=== PATIENT | female | born 1960 | race Caucasian/White ===

== ENCOUNTER → 2018-02-09 | Outpatient (CLI) | payer OTHER, MEDICARE ==
[~2018-02-09] MED LIST: ALLO100 PO; CALGLU500; CHOL10002 PO; COLE625 PO; CONEST.625 PO; CYCL10 PO; DULO30 PO; ENJUVIA; FAMO20 PO; FERR325 PO; FLORINEF; FOLI400 PO; FURO20 PO; GABA300 PO; GABA600 PO; HYDACE10B PO; HYDCOR10 PO; Hydrochlorothia25 MG PO; IBUP600 PO; Keflex500 MG PO; LISI20 PO; LISI5 PO; LISINOPRIL PO; MAGOXI400 PO; METF500 PO; METF500C PO; MULVITA; OLME20; OMEPRAZOLE MAGN20 MG PO; POTCHL10ER PO; POTCHL20ER PO; PRAV20 PO; PRAVASTATIN PO; RXCYCL10 PO; TOCO400; TRAM50 PO; ZOLOFT PO; ZOLP10 PO; [UNRECOGNIZED DRUG - REMARK]; [UNRECOGNIZED DRUG - REMARK]; [UNRECOGNIZED DRUG - REMARK]
== END ==
LOC: PLD 07:16 → LAB SHORT 07:16
DX: D48.5 Neoplasm of uncertain behavior of skin (principal)
CPT/HCPCS: 88312

== ENCOUNTER 2018-12-14 07:48 | Day surgery (SDC) | payer BC, MEDICARE ==
[~2018-12-14] VITALS: Ht 167 cm; Wt 103.2 kg
[2018-12-14] MEDS ORDERED: METO25ER PO (08:18)
--- NOTE | 2018-12-14 09:02 | NUR ---
12/14/18 0902 Efrain Womack PATIENT DETERMINED TO BE ASA APPROPRIATE FOR PROPOFOL SEDATION PRIOR TO START OF PROCEDURE BY . 3-LEAD EKG REVIEWED WITH PHYSICIAN PRIOR TO START OF PROCEDURE.PATIENT CONFIRMS NPO STATUS AND AGREES WITH SCHEDULED PROCEDURE.History, Chart, Medications and Allergies reviewed before start of procedure.MONITOR INTACT WITH CONTINUOUS PULSE OXIMETRY AND INTERMITTENT BP.O2 VIA N/C INTACT THROUGHOUT SEDATION/PROCEDURE.HURRICAINE SPRAY TO OROPHARYX.Bite Block Placed
--- NOTE | 2018-12-14 09:58 | NUR ---
RECIEVED PATIENT AND REPORT PATIENT AWAKE ABLE TO FOLLOW COMMANDS
--- NOTE | 2018-12-14 10:25 | NUR ---
Discharge instructions reviewed with patient. Patient verbalizes understanding. Copy given to patient to take home. Discharged via wheelchair to private car for ride home.
== END 2018-12-14 10:20 | disposition home or self-care (01) ==
LOC: ORSCMMR 07:48 → ORD 09:00 → ORSCMMR 09:00
PROVIDERS: Internal Medicine Gastroenterology
PROC: 0DB68ZX Excision of Stomach, Via Natural or Artificial Opening Endoscopic, Diagnostic (ICD-10-PCS; principal; 2018-12-14 09:00)
PROC: 0DBN8ZX Excision of Sigmoid Colon, Via Natural or Artificial Opening Endoscopic, Diagnostic (ICD-10-PCS; principal; 2018-12-14 09:00)
PROC: 0DBK8ZX Excision of Ascending Colon, Via Natural or Artificial Opening Endoscopic, Diagnostic (ICD-10-PCS; principal; 2018-12-14 09:00)
DX: K21.0 Gastro-esophageal reflux disease with esophagitis (principal); Z12.11 Encounter for screening for malignant neoplasm of colon; Z86.010 Personal history of colon polyps; D12.2 Benign neoplasm of ascending colon; K63.5 Polyp of colon; K76.6 Portal hypertension; K31.89 Other diseases of stomach and duodenum; E11.9 Type 2 diabetes mellitus without complications; Z79.899 Other long term (current) drug therapy
CPT/HCPCS: 82947; 88305; 88342; J2704; J7120

== ENCOUNTER → 2020-06-05 | Outpatient (CLI) | payer MEDICARE ==
[~2020-06-05] MED LIST changes: +METO25ER PO
[2020-06-05 15:06] LABS: BASOPHILS ABSOLUTE AUTO 0.06 K/mm3 (0.00-0.23); BASOPHILS PERCENT AUTO 1 % (0-2); EOSINOPHILS ABSOLUTE AUTO 0.14 K/mm3 (0.00-0.68); EOSINOPHILS PERCENT AUTO 2 % (0-6); Hematocrit 35.5 % (33.0-51.0); Hemoglobin 11.8 g/dL (11.5-16.0); IMMATURE GRAN ABSOLUTE AUTO 0.02 K/mm3 (0.00-0.10); IMMATURE GRAN PERCENT AUTO 0 % (0-1); LYMPHOCYTES ABSOLUTE AUTO 1.66 K/mm3 (0.84-5.20); LYMPHOCYTES PERCENT AUTO 19 % (21-46); MONOCYTES ABSOLUTE AUTO 0.88 K/mm3 (0.16-1.47); MONOCYTES PERCENT AUTO 10 % (4-13); Mean Corpuscular HGB 36.2 pg (26.0-34.0); Mean Corpuscular HGB Conc 33.2 g/dL (31.5-36.5); Mean Corpuscular Volume 109 fL (80-100); Mean Platelet Volume 9.2 fL (9.1-12.4); NEUTROPHILS ABSOLUTE AUTO 5.79 K/mm3 (1.96-9.15); NEUTROPHILS PERCENT AUTO 68 % (41-73); Platelet Count 322 K/mm3 (150-400); RDW Coefficient Variation 12.7 % (11.7-14.2); RDW Standard Deviation 51.8 fL (35.1-46.3); Red Blood Cell Count 3.26 M/mm3 (3.80-5.20); White Blood Cell Count 8.55 K/mm3 (4.00-11.30)
[2020-06-05 15:24] LABS: Alanine Aminotransfer (ALT/SGP 22 U/L (12-78); Albumin, Blood 2.8 g/dL (3.4-5.0); Albumin/Globulin Ratio 0.7 (0.8-1.8); Alk Phos 457 U/L (50-136); Anion Gap 11 mmol/L (6-16); Aspartate Aminotrans (AST/SGOT 117 U/L (12-37); Bilirubin, Direct 2.7 mg/dL (0.0-0.3); Bilirubin, Indirect 0.6 mg/dL (0.1-0.7); Bilirubin, Total 3.3 mg/dL (0.1-1.0); Blood Urea Nitrogen 4 mg/dL (8-24); Bun/Creatinine Ratio 4.9 (12.0-20.0); CHOL/HDL RATIO 8.9; CO2, Blood 26 mmol/L (21-32); Calcium, Blood 8.2 mg/dL (8.5-10.1); Chloride, Blood 96 mmol/L (98-108); Cholesterol 232 mg/dL (50-200); Creatinine, Blood 0.81 mg/dL (0.40-1.00); Globulin, Blood 3.9 g/dL (2.2-4.0); Glomerular Filtration Rate >60 (60-); Glucose, Blood 119 mg/dL (70-99); HDL Cholesterol 26 mg/dL (>39); LDL/HDL RATIO 5.7; Low Density Lipoprotein Chol 148 mg/dL (0-110); Phosphorus, Blood 2.7 mg/dL (2.5-4.9); Potassium, Blood 3.1 mmol/L (3.5-5.5); Sodium, Blood 133 mmol/L (136-145); Total Protein, Blood 6.7 g/dL (6.4-8.2); Triglycerides 290 mg/dL (30-160); Very Low Density Lipoprot Chol 58 mg/dL (6-32)
== END | disposition home or self-care (01) ==
LOC: LAB SHORT 13:44 → LAB FUT 08-09 10:45
PROVIDERS: Internal Medicine Nephrology
DX: N18.2 Chronic kidney disease, stage 2 (mild) (principal); D63.1 Anemia in chronic kidney disease; N25.81 Secondary hyperparathyroidism of renal origin; E55.9 Vitamin D deficiency, unspecified; E78.00 Pure hypercholesterolemia, unspecified; R76.9 Abnormal immunological finding in serum, unspecified; R94.5 Abnormal results of liver function studies; R80.9 Proteinuria, unspecified; R94.6 Abnormal results of thyroid function studies
CPT/HCPCS: 36415; 80053; 80061; 82248; 84100; 84443; 85025

== ENCOUNTER 2020-06-17 21:21 | Inpatient (IN) | payer MEDICARE, OTHER ==
[~2020-06-17] VITALS: Ht 165.1 cm; Wt 104.5 kg
[~2020-06-17 21:21] MED LIST changes: -ALLO100 PO; -FOLI400 PO; -METF500C PO; -METO25ER PO; -OMEPRAZOLE MAGN20 MG PO; -PRAV20 PO; -TRAM50 PO
[2020-06-17 21:40] LABS: Calcium, Ionized (POC) 0.79 mmol/L (1.10-1.46); Chloride (POC) 77 mmol/L (98-108); Creatinine (POC) 1.3 mg/dL (0.6-1.0); Glucose (ISTAT POC) 112 mg/dL (70-99); Hemoglobin (POC) 12.2 g/dL (12.0-16.0); Potassium (POC) 3.2 mmol/L (3.5-5.5); Sodium (POC) 126 mmol/L (135-148); Total CO2 (POC) 32 mmol/L (21-32)
[2020-06-17 21:49] LABS: BASOPHILS ABSOLUTE AUTO 0.04 K/mm3 (0.00-0.23); BASOPHILS PERCENT AUTO 0 % (0-2); EOSINOPHILS ABSOLUTE AUTO 0.08 K/mm3 (0.00-0.68); EOSINOPHILS PERCENT AUTO 1 % (0-6); IMMATURE GRAN ABSOLUTE AUTO 0.03 K/mm3 (0.00-0.10); IMMATURE GRAN PERCENT AUTO 0 % (0-1); LYMPHOCYTES ABSOLUTE AUTO 1.82 K/mm3 (0.84-5.20); LYMPHOCYTES PERCENT AUTO 20 % (21-46); MONOCYTES PERCENT AUTO 14 % (4-13); Mean Corpuscular HGB 35.5 pg (26.0-34.0); Mean Corpuscular HGB Conc 34.4 g/dL (31.5-36.5); Mean Corpuscular Volume 103 fL (80-100); NEUTROPHILS ABSOLUTE AUTO 6.03 K/mm3 (1.96-9.15); NEUTROPHILS PERCENT AUTO 65 % (41-73); Platelet Count 348 K/mm3 (150-400); RDW Coefficient Variation 12.3 % (11.7-14.2); RDW Standard Deviation 46.4 fL (35.1-46.3)
[2020-06-17 22:04] LABS: Alanine Aminotransfer (ALT/SGP 21 U/L (12-78); Albumin, Blood 2.9 g/dL (3.4-5.0); Albumin/Globulin Ratio 0.7 (0.8-1.8); Alk Phos 383 U/L (50-136); Anion Gap 18 mmol/L (6-16); Aspartate Aminotrans (AST/SGOT 89 U/L (12-37); Bilirubin, Total 5.4 mg/dL (0.1-1.0); Blood Urea Nitrogen 7 mg/dL (8-24); Bun/Creatinine Ratio 7.3 (12.0-20.0); CO2, Blood 31 mmol/L (21-32); Calcium, Blood 7.5 mg/dL (8.5-10.1); Chloride, Blood 79 mmol/L (98-108); Creatinine, Blood 0.96 mg/dL (0.40-1.00); Globulin, Blood 4.1 g/dL (2.2-4.0); Glomerular Filtration Rate >60 (60-); Glucose, Blood 104 mg/dL (70-99); Potassium, Blood 3.1 mmol/L (3.5-5.5); Sodium, Blood 128 mmol/L (136-145)
[2020-06-17] MEDS ORDERED: FUROSEMIDE40 MG PO (22:07)
[2020-06-17] MEDS ORDERED: KLOR-CON 1010 ME1 PO (22:08)
[2020-06-17] MEDS ORDERED: SPIRONOLACTONE25 MG PO (22:08)
[2020-06-17] MEDS ORDERED: TEMAZEPAM PO (22:09)
[2020-06-17] MEDS ORDERED: TRAM50 PO (22:09)
[2020-06-17] MEDS ORDERED: ZOLP10 PO (22:10)
[2020-06-17] MEDS ORDERED: FOLIC ACID0.4 MG PO (22:23)
[2020-06-17] MEDS ORDERED: MAGOXI400 PO (22:24)
[2020-06-17] MEDS ORDERED: ALLO100 PO (22:24)
[2020-06-17] MEDS ORDERED: GABA300 PO (22:24)
[2020-06-17] MEDS ORDERED: METO25 PO (22:25)
[2020-06-17] MEDS ORDERED: METF500 PO (22:25)
[2020-06-17] MEDS ORDERED: PRAVASTATIN SOD40 MG PO (22:26)
[2020-06-17] MEDS ORDERED: Naltrexone HCl50 MG PO (22:27)
[2020-06-17] MEDS ORDERED: OMEPRAZOLE MAGN20 MG PO (22:28)
[2020-06-18 01:46] LABS: Alanine Aminotransfer (ALT/SGP 19 U/L (12-78); Albumin, Blood 2.6 g/dL (3.4-5.0); Albumin/Globulin Ratio 0.8 (0.8-1.8); Alk Phos 329 U/L (50-136); Anion Gap 14 mmol/L (6-16); Aspartate Aminotrans (AST/SGOT 79 U/L (12-37); Blood Urea Nitrogen 7 mg/dL (8-24); Bun/Creatinine Ratio 7.6 (12.0-20.0); CO2, Blood 33 mmol/L (21-32); Calcium, Blood 7.4 mg/dL (8.5-10.1); Chloride, Blood 82 mmol/L (98-108); Creatinine, Blood 0.92 mg/dL (0.40-1.00); Globulin, Blood 3.4 g/dL (2.2-4.0); Glomerular Filtration Rate >60 (60-); Glucose, Blood 109 mg/dL (70-99); Potassium, Blood 2.2 mmol/L (3.5-5.5); Sodium, Blood 129 mmol/L (136-145)
--- NOTE | 2020-06-18 02:15 | NUR ---
REPORT RECIEVED FROM ZHENG MCKEON RN AND AWAITING PT T/F TO ROOM 308.
[2020-06-18 02:27] LABS: Source, Urine Clean Catch
[2020-06-18 02:33] LABS: Bilirubin, Urine Neg (Neg); Blood, Urine Neg (Neg); Glucose Qualitative, Urine Neg (Neg); Ketones, Urine 1+ (Neg); Leukocyte Esterase, Urine 3+ (Neg); Nitrite, Urine Neg (Neg); Protein, Urine Neg (Neg); Specific Gravity, Urine 1.005 (1.003-1.022); Urobilinogen, Urine 1+ (Normal); pH, Urine 6.5 (5.0-8.0)
[2020-06-18 02:41] LABS: Appearance, Urine Clear (Clear); Color, Urine Amber (P-Yellow)
[2020-06-18 02:43] LABS: Red Blood Cells, Urine 0-2 /hpf (0-2); Squamous Epithelial Cells Not Seen /hpf (Few)
[2020-06-18 02:44] LABS: Bacteria Few /hpf; Transitional Epithelial Cells Few /hpf (0-Rare)
--- NOTE | 2020-06-18 05:29 | NUR ---
T/F AND SUMMARY: PT T/F TO ROOM 308 AT 0237 VIA RNEY W/FAMILY AT BEDSIDE. SHE'D REPORTED INABILITY TO WALK D/T LEG CRAMPING, FOOT PAIN AND CARPEL/PEDAL SPASMS PRIOR TO ADMIT. STRENGTH IMPROVING AND PAIN TOLERABLE UPON ARRIVAL TO UNIT SO PT WAS 1PA W/FWW FROM [place] TO TOILET TO VOID THEN BED. SPEECH "IS SLOW" COMPARED TO BASELINE BUT PT IS A/OX4 AND SPECIFIES NEEDS. PT ORIENTED TO ROOM AND CALL SYSTEM. SHE ADMITS TO ETOH ABUSE (2-3 VODKA DRINKS DAILY), POOR EATING HABITS AND NOT TAKING SCHEDULED MEDS RX'D FOR 1-2 MONTHS. CIWA MONITORING IN PLACE: 0-2. SHE HAS BEEN COMPLIANT W/NEW MEDS: SPIRONOLACTONE, LASIX AND KCL FOR RECENT ASCITES AND BLE EDEMA. LEGS ARE RED, SWOLLEN AND WEEP AT TIMES. 6O MEQ IV KRIDER COMMENCED IN ER AND CONT'S INFUSING FOR CRITICAL K 2.2. LIQUID KCL WAS SENT W/PT FROM ER AND SHE VOMITED IMMEDIATELY AFTER RECIEVING IT. ZOFRAN PROVIDED FOR GOOD RELIEF OF NAUSEA AND ALERTED OF MISSED DOSE. 40MEQ PO K-DUR RX'D AND SHE TOLERATED IT W/WATER. K LEVEL TO BE REDRAWN FOLLOWING K-RIDER INFUSION THIS AM, WILL ENSURE DAY STAFF ARE AWARE. LACTIC ACID NO LONGER CRITICAL. PT STILL HYPOCALEMIC (NOW 7.4, WAS 7.5) AFTER 2GM CALCIUM GLUC RECIEVED IN ER, MD AWARE W/NO NEW ORDERS. NA WAS 129 DESPITE 1L NS BOLUS. PT S.TACH ON TELEMETRY, HR 90'S-100'S BPM W/O S/S DISTRESS. VSS/AFEBRILE, NO ACUTE CHANGES. WCTM AND REPORT TO DAY RN.
--- NOTE | 2020-06-18 17:51 | NUR ---
SHIFT SUMMARY PT ALERT BUT CONFUSED AT TIMES, NOT ORIENTED ABOUT THE DAY AND DATE. CIWA PER PROTOCOL, WHICH WNL. PT MEDICATED THE SCHEDULED TRAMADOL. PT STATED SHE HAS SOME FACE TINGLING FOR A MOMENT, BUT THEN IT WENT AWAY. PT RECEIVED POTASSIUM IV 3 BAGS TODAY; CALLED DR CASTLE FOR A LAB REPEAT; ORDERED SETS OF LAB FOR TOMORROW. DAUGHTER LESLEY RECEIVED AN UPDATE- RECEIVED A CONSENT FROM THE PT. BED IS IN THE LOWEST POSITION AND CALL LIGHT WITHIN REACH
[2020-06-19 05:15] LABS: BASOPHILS ABSOLUTE AUTO 0.04 K/mm3 (0.00-0.23); BASOPHILS PERCENT AUTO 1 % (0-2); EOSINOPHILS ABSOLUTE AUTO 0.17 K/mm3 (0.00-0.68); EOSINOPHILS PERCENT AUTO 3 % (0-6); Hematocrit 28.8 % (33.0-51.0); Hemoglobin 9.4 g/dL (11.5-16.0); IMMATURE GRAN ABSOLUTE AUTO 0.01 K/mm3 (0.00-0.10); IMMATURE GRAN PERCENT AUTO 0 % (0-1); LYMPHOCYTES ABSOLUTE AUTO 1.29 K/mm3 (0.84-5.20); LYMPHOCYTES PERCENT AUTO 25 % (21-46); MONOCYTES ABSOLUTE AUTO 0.79 K/mm3 (0.16-1.47); MONOCYTES PERCENT AUTO 15 % (4-13); Mean Corpuscular HGB 35.6 pg (26.0-34.0); Mean Corpuscular HGB Conc 32.6 g/dL (31.5-36.5); Mean Platelet Volume 9.8 fL (9.1-12.4); NEUTROPHILS ABSOLUTE AUTO 2.89 K/mm3 (1.96-9.15); NEUTROPHILS PERCENT AUTO 56 % (41-73); Platelet Count 274 K/mm3 (150-400); RDW Coefficient Variation 12.4 % (11.7-14.2); RDW Standard Deviation 50.1 fL (35.1-46.3); Red Blood Cell Count 2.64 M/mm3 (3.80-5.20); White Blood Cell Count 5.19 K/mm3 (4.00-11.30)
[2020-06-19 05:17] LABS: Mean Corpuscular Volume 109 fL (80-100)
--- NOTE | 2020-06-19 05:28 | NUR ---
SHIFT SUMMARY PT IS A 59 Y/O FEMALE, ADMITTED FOR HYPOCALCEMIA. SHE IS A&O X 4, SBA TO THE BATHROOM. NO C/O ACUTE PAIN, NAUSEA OR SOB. PT REPORTS SHE SLEPT WELL THROUGH THE NIGHT. PT ON RA, VITAL SIGNS STABLE. NO ACUTE CHANGES IN PT CONDITION NOTED. WILL CONTINUE TO MONITOR AND TREAT PER EMAR UNTIL HAND OFF TO DAY SHIFT RN.
[2020-06-19 05:50] LABS: Alanine Aminotransfer (ALT/SGP 19 U/L (12-78); Albumin, Blood 2.5 g/dL (3.4-5.0); Albumin/Globulin Ratio 0.7 (0.8-1.8); Alk Phos 286 U/L (50-136); Anion Gap 9 mmol/L (6-16); Aspartate Aminotrans (AST/SGOT 75 U/L (12-37); Bilirubin, Total 3.3 mg/dL (0.1-1.0); Blood Urea Nitrogen 6 mg/dL (8-24); Bun/Creatinine Ratio 6.5 (12.0-20.0); CO2, Blood 35 mmol/L (21-32); Calcium, Blood 7.2 mg/dL (8.5-10.1); Chloride, Blood 90 mmol/L (98-108); Creatinine, Blood 0.93 mg/dL (0.40-1.00); Globulin, Blood 3.4 g/dL (2.2-4.0); Glomerular Filtration Rate >60 (60-); Glucose, Blood 102 mg/dL (70-99); Magnesium, Blood 1.3 mg/dL (1.6-2.4); Phosphorus, Blood 2.2 mg/dL (2.5-4.9); Potassium, Blood 3.3 mmol/L (3.5-5.5); Sodium, Blood 134 mmol/L (136-145); Total Protein, Blood 5.9 g/dL (6.4-8.2)
[2020-06-19] MEDS ORDERED: CALCIUM CARBON500 M1 PO (08:48)
[2020-06-19] MEDS ORDERED: ONDA4ODT MM (08:49)
[2020-06-19] MEDS ORDERED: CEFP200 PO (08:49)
[2020-06-19] MEDS ORDERED: VISBIOME 112.51 EACH PO (08:50)
[2020-06-19] MEDS ORDERED: Lasix20 MG PO (08:51)
--- NOTE | 2020-06-19 11:22 | NUR ---
AM MEDS DR. CROUCH NOTIFIED OF PTS BP, 107/57. 25MG OF METOPERLOL AND [address] CROUCH ORDERED THAT IT IS OKAY TO GIVE BOTH MEDS. PARAMETERS PLACED ON ORDER.
--- NOTE | 2020-06-19 16:35 | NUR ---
DISCHARGE PT DISCHARGED WITH NO ACUTE CHANGES IN ASSESSMENT PRIOR TO DC. PT EDUCATED ON DC INSTRUCTIONS AND NEW MEDICATIONS. HARD SCRIPT FOR FOLLOW UP LABS GIVEN TO PT. HOME O2 EVAL COMPLETED & PT DOES NOT REQUIRE ANY O2. PT DENIED FURTHER NEED FOR INSTRUCTION AT THIS TIME. PT WHEELED OUT BY AIDE & DRIVEN HOME BY MOTHER.
== END 2020-06-19 15:52 | disposition home health service (06) | DRG 690 ==
LOC: ER 21:21 → MEDS 21:22 → ENPENDDIS 06-19 10:54 → MEDS 06-19 15:52
PROVIDERS: Emergency Medicine; Family Medicine; ADMIT Internal Medicine
DX: N39.0 Urinary tract infection, site not specified (principal); E87.1 Hypo-osmolality and hyponatremia; E24.9 Cushing's syndrome, unspecified; E87.2 Acidosis; Z68.41 Body mass index [BMI] 40.0-44.9, adult; E83.51 Hypocalcemia; K70.11 Alcoholic hepatitis with ascites; I10 Essential (primary) hypertension; E87.6 Hypokalemia; E11.40 Type 2 diabetes mellitus with diabetic neuropathy, unspecified; E11.69 Type 2 diabetes mellitus with other specified complication; F10.10 Alcohol abuse, uncomplicated; Z90.49 Acquired absence of other specified parts of digestive tract; Z98.890 Other specified postprocedural states; Z79.899 Other long term (current) drug therapy
CPT/HCPCS: 36415; 71045; 74177; 80047; 80053; 81001; 82140; 82652; 82947; 83605; 83735; 84100; 85014; 85025; 87040; 87086; 93005; 93010; 93970; 94761; 96365-59; 96367; 96372; 96375; 97116; 97162; 97166; 97530; 97535; 99285-25; A9270; A9270-GY; G0378; J0610; J0692; J0696; J1644; J2405; J3475; J3480; J7030; J7040; J7060; Q9967

== ENCOUNTER → 2020-10-31 | Outpatient (CLI) | payer MEDICARE, OTHER ==
[~2020-10-31] MED LIST changes: +ALLO100 PO; +CALCIUM CARBON500 M1 PO; +CEFP200 PO; +FOLIC ACID0.4 MG PO; +FUROSEMIDE40 MG PO; +KLOR-CON 1010 ME1 PO; +Lasix20 MG PO; +METO25 PO; +Naltrexone HCl50 MG PO; +OMEPRAZOLE MAGN20 MG PO; +ONDA4ODT MM; +PRAVASTATIN SOD40 MG PO; +SPIRONOLACTONE25 MG PO; +TEMAZEPAM PO; +TRAM50 PO; +VISBIOME 112.51 EACH PO
== END | disposition home or self-care (01) ==
LOC: LAB 10:20 → LAB SHORT 10:20
DX: M54.5 Low back pain (principal); R82.71 Bacteriuria; N18.2 Chronic kidney disease, stage 2 (mild)
CPT/HCPCS: 87086

== ENCOUNTER 2020-12-08 08:57 | Day surgery (SDC) | payer MEDICARE ==
[~2020-12-08] VITALS: Ht 165.1 cm; Wt 80.1 kg
[~2020-12-08 08:57] MED LIST changes: +Desyrel150 MG
== END 2020-12-08 10:30 | disposition home or self-care (01) ==
LOC: ORSCSDS 08:57
PROVIDERS: Internal Medicine Gastroenterology
PROC: 0DB68ZX Excision of Stomach, Via Natural or Artificial Opening Endoscopic, Diagnostic (ICD-10-PCS; principal; 2020-12-08 10:15)
DX: K74.60 Unspecified cirrhosis of liver (principal); K31.9 Disease of stomach and duodenum, unspecified; F32.A Depression, unspecified; I10 Essential (primary) hypertension; E11.9 Type 2 diabetes mellitus without complications; E66.9 Obesity, unspecified; Z68.30 Body mass index [BMI] 30.0-30.9, adult; Z79.899 Other long term (current) drug therapy
CPT/HCPCS: 88305; 88342; J2704; J7120

== ENCOUNTER → 2020-12-29 | Outpatient (CLI) | payer MEDICARE ==
[2020-12-29 17:21] LABS: Calcium, Urine 13.8 mg/dL (< 17.5)
[2020-12-29 17:45] LABS: Protein, Urine Quantitative <5.0 mg/dL (0.0-11.9)
[2021-01-02 13:10] LABS: M-SPIKE, % Not Observed % (Not Observed); PROTEIN,TOTAL,URINE <4.0 mg/dL (Not Estab.)
== END | disposition home or self-care (01) ==
LOC: LAB SHORT 12:49 → LAB 12:49
PROVIDERS: Internal Medicine
DX: N18.31 Chronic kidney disease, stage 3a (principal)
CPT/HCPCS: 81050; 82340; 84156

== ENCOUNTER → 2021-01-05 | Outpatient (CLI) | payer MEDICARE | END | disposition home or self-care (01) | LOC: LAB SHORT 17:30 | DX: E11.22 Type 2 diabetes mellitus with diabetic chronic kidney disease (principal); N18.2 Chronic kidney disease, stage 2 (mild); K70.31 Alcoholic cirrhosis of liver with ascites; K52.9 Noninfective gastroenteritis and colitis, unspecified | CPT/HCPCS: 82656; 87177; 87209 ==

== ENCOUNTER → 2021-01-06 | Outpatient (CLI) | payer MEDICARE ==
[2021-01-06 20:32] LABS: Campylobacter Sp Not Detected (NOT DETECT)
[2021-01-06 20:33] LABS: Adenovirus F 40/41 Not Detected (NOT DETECT); Astrovirus Not Detected (NOT DETECT); Cryptosporidium Not Detected (NOT DETECT); Cyclospora Cayetanensis Not Detected (NOT DETECT); E. Coli O157 Not Detected (NOT DETECT); Entamoeba Histolytica Not Detected (NOT DETECT); Enteroaggregative E. coli-EAEC Not Detected (NOT DETECT); Enteropathogenic E. coli-EPEC Not Detected (NOT DETECT); Enterotoxigenic E. coli-ETEC Not Detected (NOT DETECT); Giardia Lamblia Not Detected (NOT DETECT); Norovirus GI/GII Not Detected (NOT DETECT); Plesiomonas Shigelloides Not Detected (NOT DETECT); Rotavirus A Not Detected (NOT DETECT); Salmonella Sp Not Detected (NOT DETECT); Sapovirus Not Detected (NOT DETECT); Shiga Toxin-prod E. coli-STEC Not Detected (NOT DETECT); Shigella/Enteroin E. coli-EIEC Not Detected (NOT DETECT); Vibrio Cholerae Not Detected (NOT DETECT); Vibrio Sp Not Detected (NOT DETECT); Yersinia Enterocolitica Not Detected (NOT DETECT)
[2021-01-08 13:11] LABS: FATS, NEUTRAL Normal (.); FATS, TOTAL Normal (.)
== END | disposition home or self-care (01) ==
LOC: LAB SHORT 12:30
PROVIDERS: Family Medicine
DX: E11.22 Type 2 diabetes mellitus with diabetic chronic kidney disease (principal); N18.2 Chronic kidney disease, stage 2 (mild); K52.9 Noninfective gastroenteritis and colitis, unspecified; K70.31 Alcoholic cirrhosis of liver with ascites
CPT/HCPCS: 0097U; 82705; 83993

== ENCOUNTER 2021-10-22 10:36 | Day surgery (SDC) | payer MEDICARE ==
[~2021-10-22] VITALS: Ht 165.1 cm; Wt 72.2 kg
[2021-10-22] MEDS ORDERED: CREON DR 12,001 EACH PO (11:32)
[2021-10-22] MEDS ORDERED: POTA10T PO (11:32)
[2021-10-22] MEDS ORDERED: VITAMIN B125000 MC1 PO (11:33)
[2021-10-22] MEDS ORDERED: Seroquel Xr50 MG PO (11:33)
== END 2021-10-22 13:44 | disposition home or self-care (01) ==
LOC: ORSCSDS 10:36
PROVIDERS: Internal Medicine Gastroenterology
PROC: 0DB68ZX Excision of Stomach, Via Natural or Artificial Opening Endoscopic, Diagnostic (ICD-10-PCS; principal; 2021-10-22 11:45)
DX: K70.30 Alcoholic cirrhosis of liver without ascites (principal); K21.9 Gastro-esophageal reflux disease without esophagitis; Z79.899 Other long term (current) drug therapy
CPT/HCPCS: 82947; 88305; 88342; J2704; J7120

== ENCOUNTER → 2023-03-10 | Outpatient (CLI) | payer MEDICARE ==
[~2023-03-10] MED LIST changes: +CREON DR 12,001 EACH PO; +POTA10T PO; +Seroquel Xr50 MG PO; +VITAMIN B125000 MC1 PO
== END ==
LOC: LAB SHORT 10:03 → LAB 10:03
DX: L03.111 Cellulitis of right axilla (principal)
CPT/HCPCS: 87070; 87075; 87077; 87147; 87186; 87205

== ENCOUNTER 2023-07-01 12:42 | Day surgery (SDC) | payer MEDICARE ==
[~2023-07-01] VITALS: Ht 165.1 cm; Wt 81.2 kg
[~2023-07-01 12:42] MED LIST changes: +Atropine Sulfate 0.1 MG/ML 10ML SYR ONE; +FOLIC ACID PO; +Glycopyrrolate 0.2 MG/ML 1MLVIAL ONE; +KLOR-CON 1010 ME9 PO; +Lactated Ringer's 1,000 ML IV ONE; +Lidocaine 2% 5 ML SDV ONE; +Lidocaine HCl/Pf 1% 5 ML VIAL ONE; +MULTIPLE VITAM1 EACH PO; +Methylene Blue 1% 100 MG/10 ML VIAL ONE; +NALTREXONE PO; -Naltrexone HCl50 MG PO; +Ondansetron HCl 2 MG / ML 2ML Vial ONE; -POTA10T PO; +QUET25 PO; -Seroquel Xr50 MG PO; +TEMA30 PO; -TEMAZEPAM PO; +TRAZ100 PO; +[UNRECOGNIZED DRUG - OTHER] PO; +ePHEDrine Sulfate 50 MG/ML 1ML Injection ONE; +propofoL 50 ML IV ONE
[2023-07-01] MEDS ORDERED: CREON DR 12,001 EACH (13:00)
[2023-07-01] MEDS ORDERED: Lactated Ringer's 1,000 ML IV ONE (13:35)
--- NOTE | 2023-07-01 15:56 | NUR ---
07/01/[address] NOTIFIED OF PT.'S HR 120 & REGULAR, SINUS TACH IN PRE-OP & THAT PT. VERBALIZES HER HR RUNS FAST. PT. TAKEN INTO ENDO ROOM, PT. HR [address] LEON TO PROCEED WITH COLONOSCOPY. PT. IN ROOM 1346. PT. THEN TURNING TO LEFT SIDE & PT.'S IV CAME OUT. PRESSURE HELD ON SITE & THEN GAUZE & COBAN APPLIED. IV CATH 22G INTACT. 1400 IV RESTARTED WITH 22G IV IN INTERIOR WRIST, PT.'S VEINS ROLL & PT. HAS FRAGILE SKIN. PT. VERBALIZES SHE BRUISES EASILY.
[2023-07-01 16:08] VITALS: BP 106/57
== END 2023-07-01 15:23 | disposition home or self-care (01) ==
LOC: ORSCSDS 12:42
PROVIDERS: Internal Medicine Gastroenterology
PROC: 0DBM8ZX Excision of Descending Colon, Via Natural or Artificial Opening Endoscopic, Diagnostic (ICD-10-PCS; principal; 2023-07-01 13:45)
PROC: 0DJ08ZZ Inspection of Upper Intestinal Tract, Via Natural or Artificial Opening Endoscopic (ICD-10-PCS; principal; 2023-07-01 13:45)
DX: Z12.11 Encounter for screening for malignant neoplasm of colon (principal); Z86.010 Personal history of colon polyps; D12.4 Benign neoplasm of descending colon; K57.30 Diverticulosis of large intestine without perforation or abscess without bleeding; F10.20 Alcohol dependence, uncomplicated; I12.9 Hypertensive chronic kidney disease with stage 1 through stage 4 chronic kidney disease, or unspecified chronic kidney disease; R00.0 Tachycardia, unspecified; K74.60 Unspecified cirrhosis of liver; N18.9 Chronic kidney disease, unspecified; E11.9 Type 2 diabetes mellitus without complications; E78.2 Mixed hyperlipidemia; Z79.899 Other long term (current) drug therapy
CPT/HCPCS: 82947; 88305; J0461; J2001; J2405; J2704; J7120; Q9968

== ENCOUNTER → 2023-12-06 | Outpatient (CLI) | payer MEDICARE ==
[~2023-12-06] MED LIST changes: -Atropine Sulfate 0.1 MG/ML 10ML SYR ONE; +CEPH500 PO; +CREON DR 12,001 EACH; -Glycopyrrolate 0.2 MG/ML 1MLVIAL ONE; -Lactated Ringer's 1,000 ML IV ONE; -Lidocaine 2% 5 ML SDV ONE; -Lidocaine HCl/Pf 1% 5 ML VIAL ONE; -Methylene Blue 1% 100 MG/10 ML VIAL ONE; -Ondansetron HCl 2 MG / ML 2ML Vial ONE; -ePHEDrine Sulfate 50 MG/ML 1ML Injection ONE; -propofoL 50 ML IV ONE
[2023-12-08 15:40] LABS: Stool Occult Bld Immuno 1 Negative (NEGATIVE)
== END ==
LOC: LAB 20:30 → LAB SHORT 20:30
PROVIDERS: Family Medicine
DX: D64.9 Anemia, unspecified (principal)
CPT/HCPCS: G0328

== ENCOUNTER → 2024-03-06 | Outpatient (CLI) | payer MEDICARE ==
[2024-03-08 14:52] LABS: Stool Occult Bld Immuno 1 Negative (NEGATIVE)
== END ==
LOC: LAB SHORT 15:30 → LAB 15:30
PROVIDERS: Family Medicine
DX: D75.839 Thrombocytosis, unspecified (principal)
CPT/HCPCS: G0328

== ENCOUNTER 2025-01-21 06:12 | Day surgery (SDC) | payer MEDICARE ==
[~2025-01-21] VITALS: Ht 165.1 cm; Wt 76.7 kg
[~2025-01-21 06:12] MED LIST changes: +FARXIGA10 MG PO; +FOLI1 PO; +LEVSOD100 PO; +MICONAZOLE NITRATE TOP; +OXYC5 PO; +PANT40 PO; +ROPI1 PO; +SPIR50 PO; +Seroquel Xr50 MG PO; +TORSE20 PO
[2025-01-21] MEDS ORDERED: CeFAZolin Sodium 2,000 MG VIAL ONE (06:52)
[2025-01-21] MEDS ORDERED: FentaNYL Citrate 50 MCG/ML 2 ML Injection ONE ×2 (06:58→08:44)
[2025-01-21] MEDS ORDERED: Midazolam HCl 1MG / ML 2ML Vial ONE (06:58)
[2025-01-21] MEDS ORDERED: Lidocaine HCl 2% 10 ML SDA ONE (07:01)
[2025-01-21] MEDS ORDERED: POTA20LUD PO (07:03)
[2025-01-21] MEDS ORDERED: PANTOPRAZOLE SO40 M2 PO (07:04)
[2025-01-21] MEDS ORDERED: [UNRECOGNIZED DRUG - OTHER] (07:06)
[2025-01-21] MEDS ORDERED: CONSTULOSE10 GM/155 (07:06)
[2025-01-21] MEDS ORDERED: MAGNESIUM OXID500 MG PO (07:07)
[2025-01-21] MEDS ORDERED: LEVSOD88 PO (07:09)
[2025-01-21] MEDS ORDERED: Naltrexone HCl50 MG PO (07:09)
[2025-01-21] MEDS ORDERED: VITAMIN B150 MG PO (07:09)
[2025-01-21] MEDS ORDERED: CENTRUM SILVER1 EAC2 PO (07:10)
[2025-01-21] MEDS ORDERED: Dexamethasone Sod Phos 10 MG/ML 1ML VIAL ONE (07:21)
[2025-01-21] MEDS ORDERED: Ondansetron HCl 2 MG / ML 2ML Vial ONE ×2 (07:21→08:22)
--- NOTE | 2025-01-21 08:28 | NUR ---
01/21/25 0828 Efrain Lambert [id number] ADMINDISTERED ZOFRAN 4 MG IV PER ANESTHESIA ORDER
[2025-01-21] MEDS ORDERED: HYDROcodone 5-APAP 325 TAB ONE ×2 (08:46→09:31)
--- NOTE | 2025-01-21 09:32 | NUR ---
01/21/25 0931 Kajal Thomas PT. VERBALIZES PAIN "6-7" IN RIGHT WRIST/THUMB. DESCRIBES BEING SHARP. PT. HAS RIGHT HAND ELEVATED UP ON PILLOW & ICE INTACT. PT. TO BE MEDICATED PER DR. ESTEVEZ.
[2025-01-21 09:39] VITALS: BP 92/60
== END 2025-01-21 10:10 | disposition home or self-care (01) ==
LOC: ORSCSDS 06:12
PROVIDERS: Orthopaedic Surgery
PROC: 0RRS07Z Replacement of Right Carpometacarpal Joint with Autologous Tissue Substitute, Open Approach (ICD-10-PCS; principal; 2025-01-21 07:30)
PROC: 0LN50ZZ Release Right Lower Arm and Wrist Tendon, Open Approach (ICD-10-PCS; principal; 2025-01-21 07:30)
DX: M18.0 Bilateral primary osteoarthritis of first carpometacarpal joints (principal); M65.4 Radial styloid tenosynovitis [de Quervain]; E11.22 Type 2 diabetes mellitus with diabetic chronic kidney disease; I12.9 Hypertensive chronic kidney disease with stage 1 through stage 4 chronic kidney disease, or unspecified chronic kidney disease; N18.9 Chronic kidney disease, unspecified; K70.31 Alcoholic cirrhosis of liver with ascites; F32.A Depression, unspecified; K21.9 Gastro-esophageal reflux disease without esophagitis; E78.2 Mixed hyperlipidemia; Z79.899 Other long term (current) drug therapy
CPT/HCPCS: 82947; A9270; C1713; J0690; J1100; J2003; J2250; J2405; J2704; J3010; J7120